=== PATIENT | male | born 1945 | race Caucasian/White ===

== ENCOUNTER 2018-08-29 08:53 | Inpatient (IN) ==
--- NOTE | 2018-08-08 11:21 | PAT Medication Instructions ---
Medication Instructions Date of Service August 08, 2018 Home Medications aspirin 81 mg PO QAM atorvastatin 20 mg PO HS coQ10 (ubiquinol) 200 mg PO QAM latanoprost 1 drp OPB PM lisinopril 2.5 mg PO QAM metformin 500 mg PO BID STOP taking 2 weeks before surgery coQ10 (ubiquinol) 200 mg PO QAM If surgery is within 2 weeks, stop taking as soon as possible. DO NOT take the morning of surgery lisinopril 2.5 mg PO QAM metformin 500 mg PO BID Take morning of surgery With a small sip of water, OTHERWISE NOTHING TO EAT OR DRINK AFTER MIDNIGHT: aspirin 81 mg PO QAM Take evening before surgery atorvastatin 20 mg PO HS latanoprost 1 drp OPB PM metformin 500 mg PO BID Other Notes If you have any questions please call us at [phone] or [phone] or [phone] or [phone]
--- NOTE | 2018-08-08 12:00 | Anesthesiology Consultation ---
Date of Service August 08, 2018 Assessment & Plan (1) Encounter for pre-operative examination: Plan: Check BSG AM DOS. Chart Review Chart Review: Acceptable Risk for Surgery and Patient seen in Pre Admission Testing Teaching & Discussion Instructed NPO after midnight before surgery, except medications with 15 cc of water. Medication instructions provided according to the PAT guidelines. History Surgery Operation Date: 08/29/18 11:05 Proposed Procedures p L3-L4 Decompression Exploration/Removal Spinous Clamp; L3-L4 Fusion, Possible L4-L5 - Scottie Myers DO Height/Weight Height: 5 ft 6 in Weight: 75 kg Allergies Allergy/AdvReac Type Severity Reaction Status Date / Time No Known Allergies Allergy Verified 08/05/18 11:30 Medications Home Medications Medication Instructions Recorded Confirmed Last Taken aspirin 81 mg PO QAM 08/05/18 08/05/18 Unknown atorvastatin 20 mg PO HS 08/05/18 08/05/18 Unknown coQ10 (ubiquinol) 200 mg PO QAM 08/05/18 08/05/18 Unknown latanoprost 1 drp OPB PM 08/05/18 08/05/18 Unknown lisinopril 2.5 mg PO QAM 08/05/18 08/05/18 Unknown metformin 500 mg PO BID 08/05/18 08/05/18 Unknown Past Medical History Medical History BPH (benign prostatic hyperplasia) CKD (chronic kidney disease) stage 3, GFR 30-59 ml/min Degenerative disc disease Diabetes mellitus, type 2 A1C 6.7% 2/5 GERD (gastroesophageal reflux disease) Glaucoma Hearing deficit B/L, no aids Hyperlipidemia Osteoarthritis Spinal stenosis Tinnitus Past Family History Family History Mother Family history of diabetes mellitus Father Family history of diabetes mellitus Brother Family history of diabetes mellitus Sister Family history of diabetes mellitus Past Surgical History Surgical History Fistula of intestine REPAIRED Fusion of spine LUMBAR History of adenoidectomy History of anesthesia reaction DIFFICULTY VOIDING AFTER ANESTHESIA History of cholecystectomy History of colonoscopy History of esophagogastroduodenoscopy (EGD) History of tonsillectomy History of tooth extraction Hx of eye surgery RT EYE SURGERY "DRAINAGE FROM PRESSURE" Past Anesthesia History No Family Hx of Anesthesia Complications and Other Has had multiple occasions of urinary retention post-op, none requiring catheterization. History of PONV No Motion Sickness Screening History of Motion Sickness: No Social History Smoking Status: Former smoker Do You Dip or Chew Tobacco: No Smoking End Date: QUIT AT AGE 41 Hx Alcohol Use: No Hx Substance Use: No substance use type: does not use Exercise / Class Metabolic Activity II 4-5 Yardwork/Stairs/Walk up hill (no CP or SOB with stairs. Does get mildly SOB walking up hills while hunting.) Review of Systems Pt denies any recent chest pain, shortness of breath, palpitations, cough, fever or URI. Physical Exam Vital Signs BP: 117/74 P: 65bpm SPO2: 98% RA T: 98.0F R: 16 ENMT Mouth: + dental bridge (upper) and + dental restorations (few crowns); no chipped teeth and no loose teeth Thyromental Distance: < 3.5 Finger Breadths (2.5) Mallampati Class: III Neck + shortened thyromental distance; neck extension not limited Respiratory normal respiratory effort Auscultation: lungs clear to auscultation bilaterally Cardiovascular Rate/Rhythm: regular rate and regular rhythm Heart Sounds: no murmur Vessels: no carotid bruit Testing Electrocardiogram Date: 08/08/18 Findings: + NSR @ (62) PACs. Chest X-Ray Date: 08/08/18 Findings: + NAD Laboratory Results Blood Type A Positive 08/08/18 12:28 Antibody Screen NEGATIVE 08/08/18 12:28 PT 10.0 Seconds (9.0-12.0) 08/08/18 12:28 INR 1.0 (0.9-1.1) 08/08/18 12:28 APTT 24.3 Seconds (21.0-31.0) 08/08/18 12:28 Urine Color Yellow 08/08/18 12:28 Urine Appearance Clear (Clear) 08/08/18 12:28 Urine pH 5.0 (4.5-7.5) 08/08/18 12:28 Ur Specific [place] 1.014 (1.000-1.030) 08/08/18 12:28 Urine Protein Negative (Negative) 08/08/18 12:28 Urine Glucose (UA) Negative (Negative) 08/08/18 12:28 Urine Ketones Negative (Negative) 08/08/18 12:28 Urine Nitrite Negative (Negative) 08/08/18 12:28 Ur Leukocyte Esterase Negative (Negative) 08/08/18 12:28 08/06/18 WBC: 9.36 H/H: 14.1/42.0 PLATELETS: 279 SODIUM: 142 POTASSIUM: 4.8 CHLORIDE: 105 CO2: 24 BUN: 20 CREATININE: 1.5 GLUCOSE: 120 A1C: 6.7%
--- NOTE | 2018-08-08 12:56 | XRay Report ---
XR chest Pre-admission PA/Lat CLINICAL HISTORY: pat preoperative evaluation COMPARISON STUDY: No previous studies for comparison. FINDINGS: The bones soft tissues and hemidiaphragms are normal. The cardiomediastinal silhouette is n ormal. The lungs are clear. The pulmonary vasculature is normal. IMPRESSION: Negative chest. The above report was generated using voice recognition software. It may contain grammatical, syntax or spelling errors. Electronically signed by: Kyler Briceño M.D. 08/08/2018 12:55 PM
[2018-08-08 14:12] LABS: Appearance Urine Clear (Clear); Bilirubin Urine Negative (Negative); Blood Urine Negative (Negative); Color Urine Yellow; Glucose Urine UA Negative (Negative); Ketones Urine Negative (Negative); Leukocyte Esterase Urine Negative (Negative); Nitrite Urine Negative (Negative); Protein Urine Negative (Negative); Specific Gravity Urine 1.014 (1.000-1.030); Urobilinogen Urine Negative (Negative)
[2018-08-08 14:20] LABS: Partial Thromboplastin Ratio 0.9; Partial Thromboplastin Time 24.3 Seconds (21.0-31.0)
[~2018-08-29 08:53] MED LIST: ACETAMINOPHEN 500 MG TAB PO SCH; CEFAZOLIN 2000MG 2,000 MG/15 ML SYR IV SCH; CeleBREX 200 MG CAP PO SCH; GABAPENTIN 300 MG PO SCH; LR 15ML/HR IV SCH
[2018-08-29] MEDS ORDERED: MIDAZOLAM HCL 1 MG/ML 2ML VIAL ONE (10:34)
[2018-08-29] MEDS ORDERED: PROPOFOL IV EMULSION 10 MG/ML 20 ML VIAL IV ONE (10:34)
[2018-08-29] MEDS ORDERED: LIDOCAINE HCL 2% 2 ML VIAL/AMP(20MG/ML) INFIL ONE (10:34)
[2018-08-29] MEDS ORDERED: ROCURONIUM BROMIDE 10 MG/ML 5 ML VIAL ONE ×2 (10:34→12:44)
[2018-08-29] MEDS ORDERED: GLYCOPYRROLATE 0.2 MG/ML VIAL ONE (10:34)
[2018-08-29] MEDS ORDERED: fentaNYL citrate 100 MCG/2 ML VIAL ONE ×2 (10:34→11:44)
--- NOTE | 2018-08-29 10:44 | History & Physical Bridge Note ---
Date of Service August 29, 2018 History & Physical Bridge Note I have examined the patient, reviewed the History & Physical and in the interval since the performance of the History & Physical I have noted the following changes of clinical significance: no changes noted
--- NOTE | 2018-08-29 10:45 | History & Physical Report ---
Date of Service August 29, 2018 Assessment & Plan (1) Neurogenic claudication due to lumbar spinal stenosis: L3-4 decompression operation removal of spinous clamp L3-4 fusion possible L4-5 Present on Admission?: Yes History of Present Illness Chief Complaint: Back and leg pain Primary Care Provider: Jamie Osman MD This is a 73-year-old male who presents with chronic persistent back and leg pain. After failing extensive course of nonoperative care is here for surgical intervention. Allergies Allergy/AdvReac Type Severity Reaction Status Date / Time No Known Allergies Allergy Verified 08/05/18 11:30 Home Medications Home Medications Medication Instructions Recorded Confirmed Type aspirin 81 mg PO QAM 08/05/18 08/29/18 History atorvastatin 20 mg PO HS 08/05/18 08/29/18 History coQ10 (ubiquinol) 200 mg PO QAM 08/05/18 08/29/18 History latanoprost 1 drp OPB PM 08/05/18 08/29/18 History lisinopril 2.5 mg PO QAM 08/05/18 08/29/18 History metformin 500 mg PO BID 08/05/18 08/29/18 History Past Med/Surg History Medical History BPH (benign prostatic hyperplasia) CKD (chronic kidney disease) stage 3, GFR 30-59 ml/min Degenerative disc disease Diabetes mellitus, type 2 A1C 6.7% 2/ GERD (gastroesophageal reflux disease) Glaucoma Hearing deficit B/L, no aids Hyperlipidemia Osteoarthritis Spinal stenosis Tinnitus Surgical History Fistula of intestine REPAIRED Fusion of spine LUMBAR History of adenoidectomy History of anesthesia reaction DIFFICULTY VOIDING AFTER ANESTHESIA History of cholecystectomy History of colonoscopy History of esophagogastroduodenoscopy (EGD) History of tonsillectomy History of tooth extraction Hx of eye surgery RT EYE SURGERY "DRAINAGE FROM PRESSURE" Family History Mother Family history of diabetes mellitus Father Family history of diabetes mellitus Brother Family history of diabetes mellitus Sister Family history of diabetes mellitus Social History Preferred Language: Slovenian Communication Ability: Effective English Faculty Member Required: No Beliefs That Will Affect Care: None Current Living Situation: Alone Other Information That Helps Us Care for You: No Feels Safe at Home: Yes Safety Concerns: Feels Safe At This Time Smoking Status: Former smoker Hx Alcohol Use: No Hx Substance Use: No Physical Exam Vital Signs (Past 24 Hours): Last Vital Signs Temp 36.7 C 08/29/18 09:22 Pulse 59 L 08/29/18 09:22 Resp 18 08/29/18 09:22 BP 116/60 08/29/18 09:22 Pulse Ox 97 08/29/18 09:22 Results & Data Medications Administered Acetaminophen (Tylenol) 1,000 mg PO PREOP SMAY Stop: 08/29/18 18:00 Last Admin: 08/29/18 09:36 Dose: 1,000 mg Documented by: [id number] Celecoxib (Celebrex) 200 mg PO PREOP SAMY Stop: 08/29/18 18:00 Last Admin: 08/29/18 09:36 Dose: 200 mg Documented by: [id number] Gabapentin (Neurontin) 300 mg PO PREOP SAMY Stop: 08/29/18 18:00 Last Admin: 08/29/18 09:36 Dose: 300 mg Documented by: [id number] Lactated Ringer's (Lr) 1,000 mls @ 15 mls/hr IV .Q24H SAMY Stop: 08/30/18 05:59 Last Admin: 08/29/18 09:36 Dose: 15 mls/hr Documented by: [id number]
[2018-08-29] MEDS ORDERED: BUPIVACAINE/EPINEPHRINE 0.5% MPF 1:200,000 30 ML VIAL ONE (11:04)
[2018-08-29] MEDS ORDERED: BACITRACIN INJ 50,000 UNIT VIAL ONE (11:04)
[2018-08-29] MEDS ORDERED: ONDANSETRON INJ 2 MG/ML 2 ML VIAL IV PRN ×2 (11:38→14:26)
[2018-08-29] MEDS ORDERED: HYDROmorphone INJ 1 MG/ML SYRINGE IV PRN (11:38)
[2018-08-29] MEDS ORDERED: ePHEDrine sulfate 50 MG/ML AMP IV PRN (11:38)
[2018-08-29] MEDS ORDERED: ATROPINE SULFATE 0.1 MG/ML 10ML SYR IV PRN (11:38)
[2018-08-29] MEDS ORDERED: FLOSEAL HEMOSTATIC MATRIX 10ML TOP ONE (11:45)
[2018-08-29] MEDS ORDERED: NEOSTIGMINE METHYLSULFATE 1 MG/ML 10ML VIAL ONE (12:21)
[2018-08-29] MEDS ORDERED: ONDANSETRON INJ 2 MG/ML 2 ML VIAL ONE (12:22)
[2018-08-29] MEDS ORDERED: PHENYLEPHRINE HCL 10 MG/ML VIAL ONE (12:22)
[2018-08-29] MEDS ORDERED: ePHEDrine sulfate 50 MG/ML SYR ONE (12:22)
--- NOTE | 2018-08-29 12:51 | Operative Report ---
Post Operative Report Pre & Post Diagnosis Operation Date: 08/29/18 11:05 Pre-Op Diagnosis: LUMBAR SPINAL STENSOS W/NEUROGENIC CLAUDICATION Post-Op Diagnosis: LUMBAR SPINAL STENSOS W/NEUROGENIC CLAUDICATION Procedure Operation Date: 08/29/18 11:05 Actual Procedures #1 exploration of fusion L4-5. #2 lumbar decompression medial facetectomies foraminotomies L2-3 L3-4. #3 posterior spinal fusion L3-4. #4 placement posterior instrumentation L3-4. #5 interbody fusion L3-4 per #6 placement of titanium 10 x 26 mm cage L3-4. #7 placement of local autograft in the posterior lateral gutters. #8 placement infuse collagen sponge, mass graft in the posterior lateral gutters and ostial amp in the interbody space. Surgeon Scottie Myers DO Side Panel Padder Peg Coelho Estimated Blood Loss 100 Findings Consistent with Post-Op Diagnosis Specimens None Description of Procedure Patient was met with preoperatively case discussed all questions addressed. Aft er informed consent obtained patient was taken to the operative suite underwent intubation and placed in a prone position on the Anjum table on top of the Aramis frame. All bony prominences well-padded eyes inspected to ensure no external pressure placed upon the. This point the lumbar spine was prepped and draped in normal sterile fashion. Sharp dissection with the assistance pericardial performed down to and exposing the lamina and transverse processes of L3-4 and instrumentation L4-5. I explored the fusion mass at L4-5 it was intact. Then performed a complete laminectomy of L3 partial laminectomy of L2 from a caudal cephalad fashion. This included bilateral medial facetectomies and foraminotomies addressing severe stenosis. Pedicle screws were then placed in L3-L4 bilaterally with assistance of fluoroscopy the purposes gera placed. Through a transforaminal approach on the right complete discectomy was performed in plate coated to subcortical B bone and a 10 x 26 mm titanium cage filled with osteo-amp bone graft tapped in position. The rods were then locked in final position bilaterally. The transverse processes of L3 and L4 bur to subcortical bleeding bone. Infuse collagen sponge mass graft local autograft placed in the posterior gutters. 15 round ROME drain inserted. Incision was then closed with 1 Vicryl in the fascia 2-0 Vicryl subtenons seen for Monocryl for final skin closure. Steri-Strip sterile dressing placed. Patient will continue to PACU stable disc. Please note Peg Coelho present at the entire procedure involved in patient positioning complex portions of the surgery and final skin closure. I attest to the content of the Intraoperative Record and any orders documented therein. Any exceptions are noted below.
[2018-08-29] MEDS: fentaNYL citrate 100 MCG/2 ML VIAL IV PRN ×4 (13:27→13:43)
--- NOTE | 2018-08-29 13:53 | Fluoroscopy Report ---
FL lumbar spine 2-3V CLINICAL HISTORY: 73 years-old Male presenting with LUMBAR. TECHNIQUE: 2 fluoroscopic image(s) recorded as part of an intraoperative procedure. COMPARISON: None. FINDINGS/IMPRESSION: Posterior bilateral transpedicular screw and gera fixation of L3-4 with laminectomy defect and interbo dy spacer. Fusion hardware of the posterior elements at the level of L4-5. Please see surgical report for further details. Fluoroscopy dosage (mGy): 7.55. Fluoroscopy time: 12.9 seconds. Number or time of fluoroscopic spot images: 0. Electronically signed by: Donald Momin M.D. 08/29/2018 1:51 PM
--- NOTE | 2018-08-29 14:00 | Anesthesiology Progress Note ---
Date of Service August 29, 2018 Anesthesia Post Procedure Vital Signs Vital Signs: Temp Pulse Pulse Pulse Resp BP BP 08/29/18 13:30 57 L 17 132/64 08/29/18 13:25 60 14 133/62 08/29/18 13:20 66 17 130/55 L 08/29/18 13:15 63 20 137/55 L 08/29/18 13:10 62 14 131/69 08/29/18 13:06 36.3 C L 76 73 16 133/63 133/63 08/29/18 09:22 36.7 C 59 L 18 116/60 Pulse Ox 08/29/18 13:30 98 08/29/18 13:25 100 08/29/18 13:20 91 08/29/18 13:15 100 08/29/18 13:10 100 08/29/18 13:06 100 08/29/18 09:22 97 Pain Intensity Bilateral Lower Back: Pain Intensity: 4 Notes Mental Status: alert / awake / arousable and participated in evaluation Patient Amnestic to Procedure: Yes Nausea / Vomiting: adequately controlled Pain: adequately controlled Airway Patency, RR, SpO2: stable & adequate BP & HR: stable & adequate Hydration State: stable & adequate Anesthetic Complications: no major complications apparent and Pt Satisfied with anesthetic care
[2018-08-29] MEDS ORDERED: ACETAMINOPHEN 500 MG TAB PO PRN (14:26)
[2018-08-29] MEDS ORDERED: LORazepam 0.5 MG/1 ML VIAL IV PRN (14:26)
[2018-08-29] MEDS ORDERED: DO NOT ADMINISTER FLU VACCINE PRN (14:26)
[2018-08-29] MEDS ORDERED: HYDROmorphone INJ 0.5 MG/0.5 ML SYR IV PRN (14:26)
[2018-08-29] MEDS ORDERED: TRAMADOL HCL 50 MG TABLET PO PRN (14:26)
[2018-08-29] MEDS ORDERED: PROMETHAZINE HCL 12.5 MG in SODIUM CHLORIDE 0.9% 50 ML IV PRN (14:26)
[2018-08-29] MEDS ORDERED: MAGNESIUM HYDROXIDE SUSP 30 ML UDC PO PRN (14:26)
[2018-08-29] MEDS ORDERED: DO NOT ADMINISTER PNEUMOCOCCAL VACCINE PRN (14:26)
[2018-08-29] MEDS ORDERED: LORazepam 0.5 MG TAB PO PRN (14:26)
[2018-08-29] MEDS ORDERED: SOD PHOSPHATE/SOD BIPHOSPHATE ENEMA 132 ML BTL PR PRN (14:26)
[2018-08-29] MEDS ORDERED: ALUMINUM/MAGNESIUM SUSP 30 ML UDC PO PRN (14:26)
[2018-08-29] MEDS ORDERED: FAMOTIDINE 20 MG TAB PO PRN (14:26)
[2018-08-29] MEDS ORDERED: ONDANSETRON 4 MG TAB PO PRN (14:26)
[2018-08-29] MEDS ORDERED: BISACODYL 10 MG SUPP PR PRN (14:26)
[2018-08-29] MEDS ORDERED: OXYCODONE HCL IR 5 MG TAB (IMMEDIATE RELEASE) PO PRN (14:26)
[2018-08-29] MEDS ORDERED: ACETAMINOPHEN 1,000 MG/100 ML VIAL IV PRN (14:26)
[2018-08-29] MEDS ORDERED: METOCLOPRAMIDE HCL INJ 5 MG/ML 2 ML VIAL IV PRN (14:26)
[2018-08-29] MEDS: SODIUM CHLORIDE 0.9% 1000ML 1,000 ML IV SCH ×2 (14:47→21:39)
[2018-08-29] MEDS ORDERED: GLUCAGON FOR INJ 1 MG VIAL SQ PRN (15:07)
[2018-08-29] MEDS ORDERED: GLUCOSE 40% GEL 15 GM TUBE PO PRN (15:07)
[2018-08-29] MEDS ORDERED: GLUCOSE 10 TABS/TUBE PO PRN (15:07)
[2018-08-29] MEDS ORDERED: DEXTROSE 50% 50 ML SYRINGE IV PRN (15:07)
[2018-08-29] MEDS ORDERED: CARBOHYDRATES FOR HYPOGLYCEMIA PO PRN (15:07)
--- NOTE | 2018-08-29 15:09 | Hospitalist Consultation ---
Date of Consultation August 29, 2018 Assessment & Plan (1) S/P spinal surgery: Patient is a 73-year-old male with a PMH of type 2 diabetes, CKD III, hyperlipidemia and lumbar spine stenosis who is POD#0 L3-L4 decompression and fusion by Dr. Myers. -Pt is doing well post-operatively -Per ortho for pain control, wound care, anticoagulation and activities -Monitor H&H (pre-op hgb of 14.1). EBL: 100 ml -Continue incentive spirometry, PT/OT when appropriate (2) Diabetes mellitus, type 2: A1c of 6.7 on 08/06/18 -Hold home agents -SSI while in-patient -BSG AC HS (3) CKD (chronic kidney disease) stage 3, GFR 30-59 ml/min: Pre-op Cr of 1.5, GFR of 48 -Monitor kidney function with BMP in AM (4) Hyperlipidemia: Continue atorvastatin PCP: Jacqui Dispo: Per primary service Patient seen in collaboration with Dr. Sebastian. Please see addendum. Supervising Physician Co-Signing Physician Notes I have seen and examined the patient with our team's physician assistant professor of english and agree with the assessment and plan and would like to comment that this is a 73 year old male who is a patient of orthopedic service with hospitalist medicine service being consulted for medical management while patient recovering from spinal surgery performed on 08/29/18 for LUMBAR SPINAL STENSOS W/NEUROGENIC CLAUDICATION on 08/29/18 (Actual Procedures #1 exploration of fusion L4-5. #2 lumbar decompression medial facetectomies foraminotomies L2-3 L3-4. #3 posterior spinal fusion L3-4. #4 placement posterior instrumentation L3-4. #5 interbody fusion L3-4 per #6 placement of titanium 10 x 26 mm cage L3-4. #7 placement of local autograft in the posterior lateral gutters. #8 placement infuse collagen sponge, mass graft in the posterior lateral gutters and ostial amp in the interbody space.) Patient seen and examined on medical/surgical parekh general: no acute distress, eating lunch, verbal denies nausea or vomiting Neuro/Extremities: able to move upper extremities, legs in SCDs able to wiggle toes bilaterally Heart: bradycardic Lungs: clear to auscultation bilaterally, no wheezing, on nasal cannula Abdomen: soft, nontender, bowel sounds present recommend continue management of pain control with current DVT prophylaxis continue management of Type 2 diabetes mellitus without correction use of insulin as above with current sliding scale protocol and to hold home dose metformin for now continue atorvastatin Monitor Hgb for acute blood loss, currently has ROME drain and management of CKD stage III with follow up basic metabolic panel Consult was done today by physician assistant professor of english and Dr. Sebastian. Patient will continued to be followed by colleague hospitalist Dr. Vieyra as construction consultant starting on 08/30/18 History of Present Illness Reason for Consultation: post op medical management Attending Physician: Scottie Myers, DO History of Present Illness Patient is a 73-year-old male with a PMH of type 2 diabetes, CKD III, hyperlipidemia and lumbar spine stenosis who is POD#0 L3-L4 decompression and fusion by Dr. Myers. Feeling well post-operatively. Has 4/10 surgical site pain. Currently eating lunch and tolerating well, no nausea or vomiting. Has history of well-controlled type 2 diabetes with recent A1c of 6.7 on August 06. Denies any fever, chills, lightheadedness, headache, cough, chest pain, palpitations, shortness of breath, abdominal pain, dysuria, diarrhea, constipation or lower extremity edema. No numbness or paresthesias in lower extremity. Follows with PCP Dr. Osman in [place]. Allergies Allergy/AdvReac Type Severity Reaction Status Date / Time No Known Allergies Allergy Verified 08/05/18 11:30 Home Medications Home Medications Medication Instructions Recorded Confirmed Type aspirin 81 mg PO QAM 08/05/18 08/29/18 History atorvastatin 20 mg PO HS 08/05/18 08/29/18 History coQ10 (ubiquinol) 200 mg PO QAM 08/05/18 08/29/18 History latanoprost 1 drp OPB PM 08/05/18 08/29/18 History lisinopril 2.5 mg PO QAM 08/05/18 08/29/18 History metformin 500 mg PO BID 08/05/18 08/29/18 History Patient History Medical History Spinal stenosis (Chronic) Hyperlipidemia (Chronic) Glaucoma (Chronic) Diabetes mellitus, type 2 (Chronic) A1C 6.7% 2/5 GERD (gastroesophageal reflux disease) (Chronic) BPH (benign prostatic hyperplasia) (Chronic) Osteoarthritis (Chronic) Tinnitus (Chronic) CKD (chronic kidney disease) stage 3, GFR 30-59 ml/min (Chronic) Surgical History Hx of eye surgery (Resolved) RT EYE SURGERY "DRAINAGE FROM PRESSURE" History of adenoidectomy (Resolved) History of tonsillectomy (Resolved) History of tooth extraction (Resolved) History of cholecystectomy (Resolved) Fistula of intestine (Resolved) REPAIRED History of anesthesia reaction (Chronic) DIFFICULTY VOIDING AFTER ANESTHESIA Family History Other Diabetes Stroke Social History Preferred Language: Liberian Communication Ability: Effective Cyber Security Architect Required: No Beliefs That Will Affect Care: None Current Living Situation: Alone Other Information That Helps Us Care for You: No Feels Safe at Home: Yes Safety Concerns: Feels Safe At This Time Smoking Status: Former smoker Hx Alcohol Use: Yes Hx Substance Use: No Review of Systems Ten systems reviewed and negative except as noted in the HPI. Physical Exam Vital Signs (Past 24 Hours): Last Vital Signs Temp 36.4 C L 08/29/18 14:20 Pulse 51 L 08/29/18 14:59 Resp 16 08/29/18 14:59 BP 125/72 08/29/18 14:59 Pulse Ox 99 08/29/18 14:59 Physical Exam: General Appearance: WD/WN, no apparent distress, eating lunch Head: normocephalic, atraumatic Eyes: normal inspection, PERRL, EOMI ENT: hearing grossly normal, pharynx normal (moist mucous membranes) Neck: supple, no JVD, no adenopathy Respiratory/Chest: lungs clear to auscultation. No wheezes, rales or rhonci. No respiratory distress or accessory muscle use Cardiovascular: regular rate, rhythm, no murmur, normal peripheral pulses Abdomen/GI: normal bowel sounds, soft, non-tender to palpation Extremities/Musculoskelatal: Lumbar surgical dressing in place. Clean, dry, intact. ROME drain visualized. No calf tenderness, normal capillary refill, no pedal edema Neurologic/Psych: alert, normal mood/affect, oriented x 3. Ankle flexion and extension intact. 2+ PT and DP pulses Skin: normal color, warm/dry Results & Data Laboratory Results Pertinent pre-op lab work: (08/06/18) Hgb: 14.1 Creatinine: 1.5 GFR: 47.8
[2018-08-29] MEDS: KETOROLAC TROMETHAMINE 15 MG/ML VIAL IV SCH ×2 (16:30→22:23)
[2018-08-29] MEDS: INSULIN ASPART 100 UNITS/ML 3 ML PEN SC SCH ×2 (18:39→21:40)
[2018-08-29] MEDS: CEFAZOLIN 2000MG 2,000 MG/15 ML SYR IV SCH (18:40)
[2018-08-29] MEDS: ATORVASTATIN 20 MG TAB PO SCH (21:39)
[2018-08-29] MEDS: DOCUSATE SODIUM/SENNA 50/8.6MG TAB PO SCH (21:39)
[2018-08-29] MEDS: LATANOPROST 0.005% OP SOLN 2.5 ML BTL OPB SCH (21:40)
[2018-08-30] MEDS: SODIUM CHLORIDE 0.9% 1000ML 1,000 ML IV SCH (03:11)
[2018-08-30] MEDS: CEFAZOLIN 2000MG 2,000 MG/15 ML SYR IV SCH (03:11)
[2018-08-30] MEDS: KETOROLAC TROMETHAMINE 15 MG/ML VIAL IV SCH ×2 (03:11→10:33)
[2018-08-30] MEDS: POLYETHYLENE (MIRALAX) 17 GM PACK PO SCH ×3 (06:15→18:06)
[2018-08-30 06:42] LABS: Basophils # (auto) 0.04 K/uL (0-0.2); Basophils % (auto) 0.3 %; Eosinophils # (auto) 0.38 K/uL (0-0.5); Eosinophils % (auto) 2.7 %; Hematocrit (blood only) 33.4 % (42-52); Hemoglobin 11.2 g/dL (14.0-18.0); Immature Granulocytes # (auto) 0.05 K/uL (0.00-0.02); Immature Granulocytes % (auto) 0.4 %; Lymphocytes # (auto) 2.36 K/uL (1.2-3.4); Lymphocytes % (auto) 17.1 %; Mean Corpuscular Hgb Conc 33.5 g/dL (32-36); Mean Corpuscular Volume 89.3 fL (80-100); Mean Platelet Volume 9.9 fL (7.4-10.4); Monocytes # (auto) 1.33 K/uL (0.11-0.59); Monocytes % (auto) 9.6 %; Neutrophils # (auto) 9.68 K/uL (1.4-6.5); Neutrophils % (auto) 69.9 %; Platelet Count 241 K/uL (130-400); RDW Coefficient of Variation 13.9 % (11.5-14.5); RDW Standard Deviation 45.6 fL (36.4-46.3); Red Blood Count 3.74 M/uL (4.7-6.1); White Blood Count 13.84 K/uL (4.8-10.8)
[2018-08-30 07:18] LABS: BUN Creatinine Ratio 10.6 (10-20); Calcium 7.7 mg/dl (8.5-10.1); Creatinine Clr Calc Pharmacy 31.2 ml/min; Est GFR (African American) 39.2; Est GFR (Non-African American) 33.8; Potassium 4.4 mmol/L (3.5-5.1)
--- NOTE | 2018-08-30 08:28 | Anesthesiology Progress Note ---
Date of Service August 30, 2018 Anesthesia Post Procedure Vital Signs Vital Signs: Temp Pulse Pulse Pulse Resp BP BP 08/30/18 07:29 37.0 C 72 18 102/63 08/30/18 03:11 36.8 C 78 16 103/69 08/29/18 23:32 37.0 C 71 16 107/58 L 08/29/18 20:45 36.3 C L 64 16 145/71 H 08/29/18 17:18 36.6 C 66 18 104/55 L 08/29/18 16:31 36.8 C 66 18 107/66 08/29/18 15:32 36.3 C L 50 L 18 114/63 08/29/18 14:59 51 L 16 125/72 08/29/18 14:20 36.4 C L 51 L 16 134/86 08/29/18 14:02 36.3 C L 08/29/18 14:00 52 L 23 08/29/18 13:55 49 L 16 137/70 08/29/18 13:51 59 L 18 129/70 08/29/18 13:50 46 L 14 08/29/18 13:45 60 16 129/68 08/29/18 13:41 60 16 131/63 08/29/18 13:40 58 L 14 08/29/18 13:36 56 L 13 138/58 L 08/29/18 13:35 59 L 16 08/29/18 13:30 57 L 17 132/64 08/29/18 13:25 60 14 133/62 08/29/18 13:20 66 17 130/55 L 08/29/18 13:15 63 20 137/55 L 08/29/18 13:10 62 14 131/69 08/29/18 13:06 36.3 C L 76 73 16 133/63 133/63 08/29/18 09:22 36.7 C 59 L 18 116/60 Pulse Ox 08/30/18 07:29 93 08/30/18 03:11 92 08/29/18 23:32 95 08/29/18 20:45 08/29/18 17:18 96 08/29/18 16:31 98 08/29/18 15:32 100 08/29/18 14:59 99 08/29/18 14:20 98 08/29/18 14:02 99 08/29/18 14:00 98 08/29/18 13:55 98 08/29/18 13:51 98 08/29/18 13:50 97 08/29/18 13:45 98 08/29/18 13:41 08/29/18 13:40 96 08/29/18 13:36 100 08/29/18 13:35 08/29/18 13:30 98 08/29/18 13:25 100 08/29/18 13:20 91 08/29/18 13:15 100 08/29/18 13:10 100 08/29/18 13:06 100 08/29/18 09:22 97 Pain Intensity Bilateral Lower Back: Pain Intensity: 1 Notes Mental Status: alert / awake / arousable Patient Amnestic to Procedure: Yes Nausea / Vomiting: adequately controlled Pain: adequately controlled Airway Patency, RR, SpO2: stable & adequate BP & HR: stable & adequate Hydration State: stable & adequate Anesthetic Complications: no major complications apparent and Pt Satisfied with anesthetic care
[2018-08-30] MEDS: ASPIRIN 81 MG ECTAB PO SCH (08:40)
[2018-08-30] MEDS: INSULIN ASPART 100 UNITS/ML 3 ML PEN SC SCH ×4 (08:41→21:38)
[2018-08-30] MEDS ORDERED: LISINOPRIL 2.5 MG TAB PO SCH (09:00)
[2018-08-30] MEDS ORDERED: NON-FORMULARY MEDICATION (Coq10 (Ubiquinol) 200 MG) PO SCH (09:00)
--- NOTE | 2018-08-30 10:29 | Hospitalist Progress Note ---
Date of Service August 30, 2018 Assessment & Plan (1) S/P spinal surgery: Patient is a 73-year-old male with a PMH of type 2 diabetes, CKD III, hyperlipidemia and lumbar spine stenosis who is POD#1 L3-L4 decompression and fusion by Dr. Myers. -Pt is doing well post-operatively -Per ortho for pain control, wound care, anticoagulation and activities -Monitor H&H. Acute blood loss anemia with Hgb of 11.2 today (pre-op hgb of 14.1). Continue to monitor. -Continue incentive spirometry, PT/OT when appropriate (2) Acute kidney injury superimposed on chronic kidney disease: Cr elevated to 1.9 today in setting of post-op blood loss anemia, (pre-op Cr of 1.5, GFR of 48) -Will continue maintenance IV fluids. Encouraged PO intake -Hold lisinopril in AM -Repeat BMP (3) Diabetes mellitus, type 2: A1c of 6.7 on 08/06/18 -Hold home agents -SSI while in-patient -BSG AC HS (4) Hyperlipidemia: Continue atorvastatin PCP: Jacqui Dispo: Per primary service Patient seen in collaboration with Dr. Luther. Please see addendum. Supervising Physician Co-Signing Physician Notes Attending Addendum: care coordinated with MADELYN Ocasio please refer to her notes for full details, I agree with her notes patient seen and examined, records reviewed by myself as well on exam, patient seen resting in bed, comfortable states he feels fine overall pain adequately controlled no other symptoms VS noted and reviewed oriented x 2, not in distress, speaks in sentences with no effort nor accessory muscle use normal rate, regular rhythm, no murmurs clear breath sounds bilaterally non distended, soft, nontender no bipedal edema, erythema, warmth no neuro deficits WBC 13 Hg 11.2 Crea 1.9 ASSESSMENT AND PLAN ACUTE RENAL FAILURE hold GABE I continue IV fluids monitor HTN stable hold GABE I in light of elevated crea other diagnoses and plan of care as per MADELYN Ocasio's notes Sawyer Luther MD Subjective Seen and examined. Sitting in bedside chair. Minimal surgical pain. Able to participate fully in PT. Tolerating diet well, no nausea or vomiting. + Flatus, no BM. No fever, chills, lightheadedness, headache, chest pain, SOB or lower extremity edema. Review of Systems All systems reviewed & are unremarkable except as noted in HPI & below Physical Exam Vital Signs (Past 24 Hours): Last Vital Signs Temp 37.0 C 08/30/18 07:29 Pulse 72 08/30/18 07:29 Resp 18 08/30/18 07:29 BP 102/63 08/30/18 07:29 Pulse Ox 93 08/30/18 07:29 Physical Exam: General Appearance: WD/WN, no apparent distress Head: normocephalic, atraumatic Eyes: normal inspection, PERRL, EOMI ENT: hearing grossly normal, pharynx normal (moist mucous membranes) Neck: supple, no JVD, no adenopathy Respiratory/Chest: lungs clear to auscultation. No wheezes, rales or rhonci. No respiratory distress or accessory muscle use Cardiovascular: regular rate, rhythm, no murmur, normal peripheral pulses Abdomen/GI: normal bowel sounds, soft, non-tender to palpation Extremities/Musculoskelatal: Lumbosacral dressing clean, dry, intact. Drain visualized. No calf tenderness, normal capillary refill, no pedal edema Neurologic/Psych: alert, normal mood/affect, oriented x 3 Skin: normal color, warm/dry Results & Data Laboratory Results Short CBC 08/30/18 Range/Units 06:28 WBC 13.84 H (4.8-10.8) K/uL Hgb 11.2 L (14.0-18.0) g/dL Hct 33.4 L (42-52) % Plt Count 241 (130-400) K/uL BMP 08/30/18 06:28 Sodium 139 Potassium 4.4 Chloride 109 H Carbon Dioxide 24 BUN 20 H Creatinine 1.93 H Glucose 122 H Calcium 7.7 L
[2018-08-30] MEDS ORDERED: SODIUM CHLORIDE 0.9% 1000ML 1,000 ML IV SCH (10:45)
--- NOTE | 2018-08-30 13:14 | Orthopedic Progress Note ---
Date of Service August 30, 2018 Assessment & Plan (1) Neurogenic claudication due to lumbar spinal stenosis: At this time will continue physical therapy advance his bowel regiment anticipate discharge home this weekend. Present on Admission?: Yes Subjective Patient has marked improvement of his leg symptoms. Back pain is well controlled. Physical Exam Vital Signs (Past 24 Hours): Last Vital Signs Temp 36.8 C 08/30/18 11:56 Pulse 73 08/30/18 11:56 Resp 18 08/30/18 11:56 BP 115/68 08/30/18 11:56 Pulse Ox 96 08/30/18 11:56 Physical Exam: On exam he is in the chair at the bedside. He is just completed physical therapy. He has good strength testing. Appears comfortable.
[2018-08-30] MEDS: LATANOPROST 0.005% OP SOLN 2.5 ML BTL OPB SCH (21:36)
[2018-08-30] MEDS: DOCUSATE SODIUM/SENNA 50/8.6MG TAB PO SCH (21:37)
[2018-08-30] MEDS: ATORVASTATIN 20 MG TAB PO SCH (21:37)
[2018-08-31] MEDS: POLYETHYLENE (MIRALAX) 17 GM PACK PO SCH ×2 (01:21→06:17)
[2018-08-31 06:06] LABS: Hematocrit (blood only) 32.8 % (42-52); Hemoglobin 10.8 g/dL (14.0-18.0); Mean Corpuscular Hgb Conc 32.9 g/dL (32-36); Mean Corpuscular Volume 88.9 fL (80-100); Mean Platelet Volume 9.9 fL (7.4-10.4); Platelet Count 220 K/uL (130-400); RDW Coefficient of Variation 13.8 % (11.5-14.5); RDW Standard Deviation 45.2 fL (36.4-46.3); Red Blood Count 3.69 M/uL (4.7-6.1); White Blood Count 10.39 K/uL (4.8-10.8)
[2018-08-31 06:34] LABS: BUN Creatinine Ratio 13.2 (10-20); Calcium 8.3 mg/dl (8.5-10.1); Creatinine Clr Calc Pharmacy 43.3 ml/min; Est GFR (African American) 58.3; Est GFR (Non-African American) 50.3; Potassium 4.5 mmol/L (3.5-5.1)
[2018-08-31] MEDS: ASPIRIN 81 MG ECTAB PO SCH (08:45)
[2018-08-31] MEDS: INSULIN ASPART 100 UNITS/ML 3 ML PEN SC SCH (08:48)
--- NOTE | 2018-08-31 10:22 | Discharge Summary ---
Date of Service August 31, 2018 Admission HPI Per Admitting Provider This is a 73-year-old male who presents with chronic persistent back and leg pain. After failing extensive course of nonoperative care is here for surgical intervention. Principal Diagnosis Lumbar spinal stenosis with neurogenic claudication Discharge Data Allergies Allergy/AdvReac Type Severity Reaction Status Date / Time No Known Allergies Allergy Verified 08/05/18 11:30 Consultations 08/29/18 14:26 Consult Case Management - Discharge Planning Routine Consult Hospitalist Routine Procedures Performed Operation Date: 08/29/18 11:05 Actual Procedures p L3-L4 Decompression Instrumented Fusion/ Interbody Fusion, Use of Infuse and Osteoamp. (Not Applicable) - Scottie Myers DO Ordered Studies 08/29/18 11:05 FL fluoroscopy <1hr Routine FL lumbar spine 2-3V Routine Hospital Course (1) Spinal stenosis: Patient underwent lumbar decompression and fusion tolerated this well was taken to orthopedic floor postoperatively. Postop day #1 he was up and ambulating nicely. He progressed to postop day #2 ROME drain decreasing appropriately pain well controlled subsequently discharged home. Discharge orders and instructions found in the chart for further review. Total Time Total Time Spent Total Time Spent (In Minutes): Not applicable Discharge Plan Discharge Items Patient Disposition: Home - Self-Care Reason For Visit: LUMBAR SPINAL STENSOS W/NEUROGENIC CLAUDICATION Discharge Diagnosis: lumbar stenosis Discharge Goals: Decrease discomfort Activity: Per 'Additional Instructions' section Non-emergency contact: Primary Care Provider Call non-emergency contact if: you have any medication questions Follow-up/Referrals: Jamie Osman MD [Primary Care Provider] - Diet: Regular Addtl Provider Instructions: ACTIVITY RECOMMENDATIONS: SELF CARE INSTRUCTIONS AFTER THORACIC/LUMBAR FUSIONS 1. You may walk to your tolerance. It is good exercise for your legs and back. Expect some back and intermittent leg aches and pains. 2. You may perform "counter-top" level activities (make a sandwich, alondra with a project, etc.). 3. No bending or lifting of more than 10 pounds or back twisting of any nature (roll like a log when turning in bed). 4. You may ride in a car for 20-30 minutes at a time. No driving until after your first visit with your doctor. 5. Frequent changes of position and restricting sitting to 30 minutes at a time will help limit the amount of back spasms and stiffness you may experience. 6. You may discontinue the use of ambulatory aids (cane, crutches, etc.) once your strength and confidence allow. 7. You may hospital medicine director the shower and let water strike your incision when you arrive home at least once daily. Do not take a tub bath, sit in a hot tub or go into a swimming pool until after your first recheck in the office. SPECIAL CARE INSTRUCTIONS: VERY IMPORTANT TO READ AND REVIEW A. Your surgical incision has been closed with a cosmetic suture under the skin that will dissolve in about 6 weeks. In 14 days, you can use a pair of clean scissors and cut the suture that is left outside of the skin at the ends of your incision. 1. The small skin tapes can be removed 7 days after surgery if they have not fallen off by that point. 2. You may keep the wound open to air as much as possible to promote healing after post-op day number 5 unless told otherwise by your doctor. 3. If you think the wound looks like it is becoming infected (redness or worsening drainage) and/or you are experiencing fever, chill or worsening back pain and muscle spasms, contact the office so that we may evaluate you as soon as possible. B. Complications are uncommon, but please contact us if you have any signs or symptoms of: 1. wound infection (fever higher than 102.5 degrees F, redness, separation of wound, drainage, or increasing pain from the incision) 2. blood clots in legs (pain, swelling, redness and warmth in legs) 3. urinary tract infection (fever higher than 102.5 degrees F, burning upon urination or increased frequency of urination) 4. nerve problems (inability to walk on your toes or heels, numbness, loss of bowel or bladder control) 5. any other symptoms that concern you C. Please call the office at if you have any concerns or questions about your operation or recovery. D. No smoking! Smoking drastically decreases the chance of a solid fusion. E. Do not take any anti-inflammatory medications (Indocin, Advil, Motrin, Aspirin, Naprosyn, etc.) as these may inhibit the chance of a solid fusion. Tylenol is okay to take for pain. MANAGING PAIN AFTER SPINAL SURGERY 1. Narcotic medication is intended for short-term use and will be provided for surgical pain. Surgical pain usually lasts for a period of 4-6 weeks. Narcotic medication includes Percocet, Vicodin, Darvocet, Tylenol #3 or Lortab. 2. Longer-term pain is more appropriately treated with non-narcotic medication such as Tylenol ES. 3. Muscle spasm is not appropriately treated with narcotics. Muscle relaxers such as Soma, Flexeril or Skelaxin can be used along with Tylenol ES. 4. Remember that we all live with some "aches and pains". This is not unusual or uncommon after an injury or as we get older. a. Back pain is expected and may include muscle spasms for 4 to 6 weeks after surgery. The pain should gradually improve. If the pain worsens for no apparent reason, please contact the office. b. Intermittent leg pain may also be experienced and should not be concerned about unless it worsens for no apparent reason. If so, please contact the office. 5. We will provide appropriate medication within the normal guidelines of their prescribed use. We will also be very cautious and aware of potential abuse and extended duration of patients' medication needs. a. Pain medications are for your comfort and to assist with sleep and rest so that the tissue can heal. They are not provided in order to return to normal activity and should not be used through the day. To do so or worsening pain at night can result from ongoing tissue damage and development of tolerance to the prescribed medicine. 6. Please allow 2-3 days to process refills. Prescriptions will not be mailed but must be picked up at the office. FOLLOW UP VISIT: Keep your scheduled follow-up appointment. Any questions, please call the office at . Prescriptions: New tramadol 50 mg Tablet 50 mg PO Q4H PRN (Reason: Pain, Moderate) Qty: 30 RF: 0 oxycodone 5 mg Tablet 5 mg PO Q4H PRN (Reason: Pain, Severe) Qty: 30 RF: 0 Continued latanoprost 0.005 % Drops 1 drp OPB PM RF: 0 metformin 500 mg Tablet 500 mg PO BID RF: 0 atorvastatin 20 mg Tablet 20 mg PO HS RF: 0 aspirin 81 mg Tablet,Delayed Release (Dr/Ec) 81 mg PO QAM RF: 0 lisinopril 2.5 mg Tablet 2.5 mg PO QAM RF: 0 coQ10 (ubiquinol) 200 mg Capsule 200 mg PO QAM RF: 0 Stand-Alone Forms: [facility], [facility] Discharge Orders: Discharge Order (Routine); Ordered 08/31/18 Ordered By: Scottie Myers Admission Data Admit Date/Time: 08/29/18 14:23 Attending Provider: Scottie Myers Admit Provider: Scottie Myers Primary Care Provider: Jamie Osman I. Other Providers: Minor Sebastian ; Van Ghosh Service: Surgical Services Other Interventions: Discharge Summary Assessment (RN) Last Done: 08/31/18 09:57
== END 2018-08-31 11:53 | disposition home or self-care (01) | DRG 454 ==
LOC: ASU 08:53 → 3E 14:23